=== PATIENT | male | born 1960 | race Caucasian/White ===

== ENCOUNTER 2019-03-24 16:50 | Emergency (ER) | payer BC ==
[~2019-03-24] VITALS: Ht 180.3 cm; Wt 79.5 kg
[~2019-03-24 16:50] MED LIST: LIPITOR; NITR0.4T39 SL; NO NEW MEDS
[2019-03-24 17:04] VITALS: Ht 180.3 cm; Wt 79.5 kg
[2019-03-24] MEDS ORDERED: morphine 4 MG/ML VIAL IV STA (17:14)
[2019-03-24] MEDS ORDERED: ONDANSETRON 4 MG INJ ONE (17:18)
[2019-03-24] MEDS ORDERED: ONDANSETRON 4 MG INJ IV STA (17:26)
[2019-03-24] MEDS ORDERED: SOD CHLORIDE 0.9% 1,000 ML IV ONE (17:30)
[2019-03-24] MEDS ORDERED: ATOR10TA65 PO (17:48)
[2019-03-24] MEDS ORDERED: KETOROLAC 30 MG INJ IV STA (18:01)
[2019-03-24 20:48] VITALS: BP 130/72; PULSE 77; RESP 20
--- NOTE | 2019-03-25 00:03 | ERD ---
ER Documentation Chief Complaint Chief Complaint R flank pain 10/10 X 2 hrs, Hx kidney stones HPI 58-year-old male with a history of multiple kidney stones in the past presenting with left flank pain radiating to the left lower quadrant, sharp, 10 out of 10, with associated nausea and vomiting. No alleviating or exacerbating factors. Denies any associated hematuria. He states that he passed a kidney stone yesterday, but his pain today was much more severe and unbearable, which is why he came to the ER. He denies any fevers or chills. No dysuria. He has a urologist he follows up with, Dr. Mcneil. ROS All systems reviewed and are negative except as per history of present illness. Medications Home Meds Reported Medications Atorvastatin Calcium (Atorvastatin Calcium) 10 Mg Tablet, 10 MG PO QHS, #30 TAB 03/24/19 Discontinued Reported Medications [No New Meds] No Conflict Check 07/05/12 [Lipitor] No Conflict Check 01/28/12 [None] No Conflict Check 04/27/10 Discontinued Scripts Nitroglycerin* (Nitrostat*) 0.4 Mg Tab.subl, 0.4 MG SL Q5MIN PRN for CHEST PAIN, #15 BOTTLE Prov:TESSY HALLCELIORajinder AlvaradoBerta DO 09/13/16 Allergies Allergies: Uncoded Allergies: NUTS (Allergy, Mild, 04/27/10) PCN (Allergy, Mild, 04/27/10) NUTS,PCN (Allergy, Unknown, 03/24/19) PMhx/Soc History of Surgery: Yes (HERNIA) Anesthesia Reaction: No Hx Neurological Disorder: No Hx Respiratory Disorders: No Hx Cardiac Disorders: No Hx Psychiatric Problems: No Hx Miscellaneous Medical Probl: No Hx Alcohol Use: Yes (occasional drinks) Hx Substance Use: No Hx Tobacco Use: No Smoking Status: Never smoker FmHx Family History: No diabetes Physical Exam Vitals Vital Signs Date Temp Pulse Resp B/P (MAP) Pulse Ox O2 O2 Flow FiO2 Time Delivery Rate 03/24/19 99.4 77 20 130/72 99 Room Air 20:48 (91) 03/24/19 77 20 135/76 99 Room Air 18:24 (95) 03/24/19 99.4 76 18 178/83 96 17:04 (114) Physical Exam Const: Severe distress secondary to pain, writhing around in bed Head: Atraumatic Eyes: Normal Conjunctiva ENT: Normal External Ears, Nose and Mouth. Neck: Full range of motion. No meningismus. Resp: Clear to auscultation bilaterally Cardio: Regular rate and rhythm, no murmurs Abd: Soft, left-sided abdominal tenderness to palpation with no rebound or guarding. non distended. Normal bowel sounds Skin: No petechiae or rashes Back: No midline tenderness. Left CVA tenderness Ext: No cyanosis, or edema Neur: Awake and alert Psych: Normal Mood and Affect Result Diagram: 03/24/19 1722 03/24/19 1723 Results 24 hrs Laboratory Tests Test 03/24/19 17:22 03/24/19 17:23 03/24/19 18:30 White Blood Count 13.9 10^3/ul Red Blood Count 5.02 10^6/ul Hemoglobin 15.5 g/dl Hematocrit 44.7 % Mean Corpuscular Volume 89.0 fl Mean Corpuscular Hemoglobin 30.9 pg Mean Corpuscular 34.7 g/dl Hemoglobin Concent Red Cell Distribution Width 12.0 % Platelet Count 246 10^3/UL Mean Platelet Volume 10.6 fl Immature Granulocytes % 0.600 % Neutrophils % 82.1 % Lymphocytes % 8.5 % Monocytes % 8.2 % Eosinophils % 0.4 % Basophils % 0.2 % Nucleated Red Blood Cells % 0.0 /100WBC Immature Granulocytes # 0.080 10^3/ul Neutrophils # 11.4 10^3/ul Lymphocytes # 1.2 10^3/ul Monocytes # 1.1 10^3/ul Eosinophils # 0.1 10^3/ul Basophils # 0.0 10^3/ul Nucleated Red Blood Cells # 0.0 10^3/ul Sodium Level 139 mmol/L Potassium Level 4.4 mmol/L Chloride Level 103 mmol/L Carbon Dioxide Level 26 mmol/L Anion Gap 10 Blood Urea Nitrogen 21 mg/dl Creatinine 1.07 mg/dl Est Glomerular Filtrat > 60 mL/min Rate mL/min Glucose Level 131 mg/dl Calcium Level 9.7 mg/dl Urine Color YELLOW Urine Clarity SLIGHTLY CLOUDY Urine pH 6.0 Urine Specific [place] 1.013 Urine Ketones NEGATIVE mg/dL Urine Nitrite NEGATIVE mg/dL Urine Bilirubin NEGATIVE mg/dL Urine Urobilinogen NEGATIVE mg/dL Urine Leukocyte Esterase NEGATIVE [place]/ul Urine Microscopic RBC 32 /HPF Urine Microscopic WBC 2 /HPF Urine Mucus FEW /HPF Urine Hemoglobin 2+ mg/dL Urine Glucose NEGATIVE mg/dL Urine Total Protein NEGATIVE mg/dl Current Medications Medications Dose Sig/Omar Start Time Status Last (Trade) Ordered Route PRN Stop Time Admin Dose Reason Admin Morphine 6 mg ONCE STAT 03/24/19 DC 03/24/19 Sulfate IV 17:14 17:22 (morphine) 03/24/19 17:16 Ondansetron 4 mg STK-MED 03/24/19 DC HCl (Zofran ONCE .ROUTE 17:18 Inj) 03/24/19 17:19 Ondansetron 4 mg ONCE STAT 03/24/19 DC 03/24/19 HCl (Zofran IV 17:26 17:31 Inj) 03/24/19 17:28 Sodium 1,000 ml @ Q1H ONCE 03/24/19 DC 03/24/19 Chloride 1,000 mls/hr IV 17:30 17:31 03/24/19 18:29 Ketorolac 30 mg ONCE STAT 03/24/19 DC 03/24/19 Tromethamine IV 18:01 18:26 (Toradol) 03/24/19 18:02 Procedures/MDM EMERGENT LABS AND DIAGNOSTIC STUDIES: Lab Results above were reviewed and interpreted by me. CBC: Leukocytosis, likely stress response. Doubt infection. No anemia BMP: No evidence of clinically significant electrolyte abnormality, acidosis, renal failure, hypoglycemia UA: Microscopic hematuria noted. No evidence of infection Radiology Results as interpreted by Radiology below were reviewed by Paco Dorman MD: KUB shows left-sided calcification, concerning for possible kidney stone Initial Nursing notes reviewed. Previous Medical Records requested via the Electronic Health Record. EMERGENCY DEPARTMENT COURSE / MEDICAL DECISION MAKING: Patient is presenting with left abdominal and flank pain with history of kidney stones. I suspect he is passing a kidney stone at this time. He was treated with antiemetics and analgesics. Labs did not show any acute abnormalities. Urinalysis showed hematuria without evidence of infection. During the patient's ED observation, he feels like he passed the stone as his pain had completely resolved upon reevaluation several hours later. I do not feel any repeat imaging is necessary at this time. Patient will follow-up with his urologist, Dr. Mcneil, he has declined all prescriptions for antiemetics and analgesics. Return precautions given. Patient's blood pressure was elevated (>120/80) but appears stable without evidence of hypertensive emergency or urgency. The patient was counseled about the risks of hypertension and urged to pursue outpatient monitoring and therapy within a week with their primary care physician. Departure Diagnosis: Primary Impression: Acute left flank pain Additional Impression: Renal colic on left side Condition: Stable Patient Instructions: Kidney Stone W/ Colic BEE DORMAN MD Mar 25, 2019 00:03
== END 2019-03-24 20:51 | disposition home or self-care (01) ==
LOC: E/R 16:50
DX: N23 Unspecified renal colic (principal)
CPT/HCPCS: 74018; 80048; 81001; 85025; J1885; J2270; J2405; J7030; 36415; 96374; 96375

== ENCOUNTER 2019-03-25 21:44 | Emergency (ER) | payer BC ==
[~2019-03-25] VITALS: Ht 180.3 cm; Wt 81.3 kg
[~2019-03-25 21:44] MED LIST changes: +ATOR10TA65 PO; -LIPITOR; -NITR0.4T39 SL; -NO NEW MEDS
[2019-03-25 21:50] VITALS: Ht 180.3 cm; Wt 81.3 kg
[2019-03-25] MEDS ORDERED: KETOROLAC 30 MG INJ IV STA (22:04)
[2019-03-25] MEDS ORDERED: KETAMINE HCL (50 MG/ML) 1ml syringe IV STA (22:33)
[2019-03-25] MEDS ORDERED: ONDANSETRON 4 MG INJ IV STA (22:33)
--- NOTE | 2019-03-26 00:21 | ERD ---
ER Documentation Chief Complaint Chief Complaint left flank pain x 1 days. hx of kidney stone HPI This is a 58-year-old male with a history of kidney stones who presents with intermittent left flank pain. He was seen here yesterday, where he had an abdominal x-ray that was most consistent with kidney stones, he has not a fever, he felt better, he is been taking Advil at home, he denies chest pain or shortness of breath, he has not had any dysuria. He denies urinary retention. ROS All systems reviewed and are negative except as per history of present illness. Medications Home Meds Active Scripts Ibuprofen* (Motrin*) 600 Mg Tab, 600 MG PO Q6, #30 TAB Prov:LUANNE DUCKWORTH MD 03/26/19 Tamsulosin Hcl* (Flomax*) 0.4 Mg Cap.er.24h, 0.4 MG PO DAILY for 30 Days, CAP Prov:LUANNE DUCKWORTH MD 03/26/19 Hydrocodone/Acetaminophen ([place] 5-325 Tablet) 1 Each Tablet, 1 TAB PO Q6H PRN for PAIN, #15 TAB Prov:LUANNE DUCKWORTH MD 03/26/19 Reported Medications Atorvastatin Calcium (Atorvastatin Calcium) 10 Mg Tablet, 10 MG PO QHS, #30 TAB 03/24/19 Discontinued Reported Medications [No New Meds] No Conflict Check 07/05/12 [Lipitor] No Conflict Check 01/28/12 [None] No Conflict Check 04/27/10 Discontinued Scripts Nitroglycerin* (Nitrostat*) 0.4 Mg Tab.subl, 0.4 MG SL Q5MIN PRN for CHEST PAIN, #15 BOTTLE Prov:EDWIN HALL DO 09/13/16 Allergies Allergies: Coded Allergies: Penicillins (Unverified Allergy, Unknown, 03/26/19) nut - unspecified (Unverified Allergy, Unknown, 03/26/19) Uncoded Allergies: NUTS (Allergy, Mild, 04/27/10) PCN (Allergy, Mild, 04/27/10) NUTS,PCN (Allergy, Unknown, 03/24/19) PMhx/Soc History of Surgery: Yes (HERNIA) Anesthesia Reaction: No Hx Neurological Disorder: No Hx Respiratory Disorders: No Hx Cardiac Disorders: No Hx Psychiatric Problems: No Hx Miscellaneous Medical Probl: No Hx Alcohol Use: Yes (occasional drinks) Hx Substance Use: No Hx Tobacco Use: No Smoking Status: Never smoker Physical Exam Vitals Vital Signs Date Temp Pulse Resp B/P (MAP) Pulse Ox O2 O2 Flow FiO2 Time Delivery Rate 03/25/19 72 14 144/106 98 Room Air 21:57 (119) 03/25/19 98.7 73 18 189/93 99 21:50 (125) Physical Exam Const: Well-developed, well-nourished uncomfortable appearing, Head: Atraumatic Eyes: Normal Conjunctiva ENT: Normal External Ears, Nose and Mouth. Neck: Full range of motion. No meningismus. Resp: Clear to auscultation bilaterally Cardio: Regular rate and rhythm, no murmurs Abd: Soft, non tender, non distended, no rebound or guarding. Normal bowel sounds Skin: No petechiae or rashes Back: No midline or flank tenderness Ext: No cyanosis, or edema Neur: Awake and alert Psych: Normal Mood and Affect Result Diagram: 03/25/19220303/25/192203 Results 24 hrs Laboratory Tests Test 03/25/19 22:04 03/26/19 01:08 White Blood Count 13.2 10^3/ul Red Blood Count 4.69 10^6/ul Hemoglobin 14.5 g/dl Hematocrit 42.5 % Mean Corpuscular Volume 90.6 fl Mean Corpuscular Hemoglobin 30.9 pg Mean Corpuscular Hemoglobin Concent 34.1 g/dl Red Cell Distribution Width 12.0 % Platelet Count 226 10^3/UL Mean Platelet Volume 10.6 fl Immature Granulocytes % 0.500 % Neutrophils % 82.3 % Lymphocytes % 6.4 % Monocytes % 9.9 % Eosinophils % 0.6 % Basophils % 0.3 % Nucleated Red Blood Cells % 0.0 /100WBC Immature Granulocytes # 0.060 10^3/ul Neutrophils # 10.9 10^3/ul Lymphocytes # 0.9 10^3/ul Monocytes # 1.3 10^3/ul Eosinophils # 0.1 10^3/ul Basophils # 0.0 10^3/ul Nucleated Red Blood Cells # 0.0 10^3/ul Sodium Level 139 mmol/L Potassium Level 4.7 mmol/L Chloride Level 101 mmol/L Carbon Dioxide Level 30 mmol/L Anion Gap 8 Blood Urea Nitrogen 23 mg/dl Creatinine 1.21 mg/dl Est Glomerular Filtrat Rate mL/min > 60 mL/min Glucose Level 108 mg/dl Calcium Level 9.4 mg/dl Total Bilirubin 1.3 mg/dl Direct Bilirubin 0.00 mg/dl Indirect Bilirubin 1.3 mg/dl Aspartate Amino Transf (AST/SGOT) 33 IU/L Alanine Aminotransferase (ALT/SGPT) 33 IU/L Alkaline Phosphatase 80 IU/L Total Protein 7.3 g/dl Albumin 4.2 g/dl Globulin 3.10 g/dl Albumin/Globulin Ratio 1.35 Lipase 67 U/L Urine Color STRAW Urine Clarity CLEAR Urine pH 8.0 Urine Specific [place] 1.009 Urine Ketones TRACE mg/dL Urine Nitrite NEGATIVE mg/dL Urine Bilirubin NEGATIVE mg/dL Urine Urobilinogen NEGATIVE mg/dL Urine Leukocyte Esterase NEGATIVE [place]/ul Urine Hemoglobin NEGATIVE mg/dL Urine Glucose NEGATIVE mg/dL Urine Total Protein NEGATIVE mg/dl Current Medications Medications Dose Sig/Omar Start Time Status Last (Trade) Ordered Route PRN Stop Time Admin Dose Reason Admin Ketorolac 30 mg ONCE STAT 03/25/19 DC 03/25/19 Tromethamine IV 22:04 03/25/19 22:08 (Toradol) 22:05 Ondansetron 4 mg ONCE STAT 03/25/19 DC 03/25/19 HCl (Zofran IV 22:33 03/25/19 23:11 Inj) 22:34 Ketamine 24 mg ONCE STAT 03/25/19 DC 03/25/19 HCl IV 22:33 03/25/19 23:11 (Ketamine 22:34 HCl) 2 tab ONCE ONCE 03/26/19 DC Acetaminophen PO 01:30 03/26/19 / 01:31 Hydrocodone Bitart ([place] (5/325)) Procedures/MDM 58-year-old male presents for relation of left flank pain, exam reveals an afebrile nontoxic male, he appeared to be in pain, and was treated with Toradol and low-dose ketamine. Labs do not appear markedly changed from yesterday, he had a CT abdomen pelvis, which showed 4 mm stone in the left mid ureter, with obstructive uropathy, otherwise no evidence of infection. On reassessment the patient felt significantly better, he strongly wished to go home, and stated that he had follow-up with urology on Wednesday, I provided prescription for [place], Flomax and ibuprofen. Strict precautions given to return to the ED for any fever, worsening abdominal pain or any worsening symptoms at discharge he was in no distress, he was ambulatory and comfortable. EKG: Rate/Rhythm: Normal Sinus Rhythm. significant artifact noted QRS, ST, T-waves: No changes consistent w/ acute ischemia Impression: No evidence of ischemia or arrhythmia Departure Diagnosis: Primary Impression: Flank pain Condition: Stable LUANNE DUCKWORTH MD Mar 26, 2019 00:21
[2019-03-26] MEDS ORDERED: HYDROCODONE/APAP (5/325) TAB PO ONE (01:30)
[2019-03-26] MEDS ORDERED: TAMS-14 PO (01:43)
[2019-03-26] MEDS ORDERED: HYDR-4011 PO (01:43)
[2019-03-26] MEDS ORDERED: IBUP-1542 PO (01:43)
[2019-03-26 01:50] VITALS: BP 145/88; PULSE 68; RESP 18
== END 2019-03-26 01:50 | disposition home or self-care (01) ==
LOC: E/R 21:44
DX: R10.9 Unspecified abdominal pain (principal)
CPT/HCPCS: 36415; 74176; 80053; 81003; 83690; 85025; 93005; 96374; 96375; 99285; J1885; J2405

== ENCOUNTER 2019-04-01 19:14 | Emergency (ER) | payer BC ==
[~2019-04-01] VITALS: Ht 180.3 cm; Wt 79.2 kg
[~2019-04-01 19:14] MED LIST changes: +HYDR-4011 PO; +IBUP-1542 PO; +TAMS-14 PO
[2019-04-01 19:16] VITALS: Ht 180.3 cm; Wt 79.2 kg
--- NOTE | 2019-04-01 23:30 | ERD ---
ER Documentation Chief Complaint Chief Complaint R ARM PAIN X'S 3 DAYS, STARTED 48 HRS AFTER IV PLACEMENT IN SAME ARM HPI This is a 58-year-old male who is here because of pain and tenderness to his right antecubital vein and extending distally. The patient had an IV placed there 48 hours ago and has subsequently had some pain at the IV site and distally there is a tender vein wraps around the forearm into the basilic. There is no swelling. There is no pain or swelling in the arm above the elbow/bicep area no shortness of breath or chest pain ROS All systems reviewed and are negative except as per history of present illness. Medications Home Meds Active Scripts Ibuprofen* (Motrin*) 600 Mg Tab, 600 MG PO Q6, #30 TAB Prov:LUANNE DUCKWORTH MD 03/26/19 Tamsulosin Hcl* (Flomax*) 0.4 Mg Cap.er.24h, 0.4 MG PO DAILY for 30 Days, CAP Prov:LUANNE DUCKWORTH MD 03/26/19 Hydrocodone/Acetaminophen ([place] 5-325 Tablet) 1 Each Tablet, 1 TAB PO Q6H PRN for PAIN, #15 TAB Prov:LUANNE DUCKWORTH MD 03/26/19 Reported Medications Atorvastatin Calcium (Atorvastatin Calcium) 10 Mg Tablet, 10 MG PO QHS, #30 TAB 03/24/19 Allergies Allergies: Coded Allergies: Penicillins (Unverified Allergy, Mild, 04/01/19) nut - unspecified (Unverified Allergy, Mild, 04/01/19) PMhx/Soc History of Surgery: Yes (HERNIA) Anesthesia Reaction: No Hx Neurological Disorder: No Hx Respiratory Disorders: No Hx Cardiac Disorders: No Hx Psychiatric Problems: No Hx Miscellaneous Medical Probl: No Hx Alcohol Use: Yes (occasional drinks) Hx Substance Use: No Hx Tobacco Use: No Smoking Status: Never smoker FmHx Family History: No coronary disease Physical Exam Vitals Vital Signs Date Temp Pulse Resp B/P (MAP) Pulse Ox O2 O2 Flow FiO2 Time Delivery Rate 04/01/19 98.0 88 18 150/94 97 19:16 (112) Physical Exam Const: Well-developed, well-nourished Head: Atraumatic, normocephalic Eyes: Normal Conjunctiva, PERRLA, EOMI, normal sclera, no nystagmus ENT: Normal External Ears, Nose and Mouth, moist mucus membranes. Neck: Full range of motion. No meningismus, no lymphadenopathy. Resp: Clear to auscultation bilaterally, no wheezing, rhonchi, rales Cardio: Regular rate and rhythm, no murmurs, S1 S2 present Abd: Soft, non tender x 4, non distended. Normal bowel sounds, no guarding or rebound, no pulsitile abdominal masses or bruits Skin: No petechiae or rashes, no ecchymosis , no maculopapular rash Back: No midline or flank tenderness Ext: No cyanosis, or edema, FROM x 4, normal inspection, neurovascularly intact x 4, there is firmness to the basilic vein, distally this there is some firmness to the vein as it wraps around the forearm Neur: Awake and alert, STR 5/5 x 4, sensation intact x 4, no focal findings, cerebellum intact Psych: Normal Mood and Affect Procedures/MDM Ultrasound report shows a thrombosis to the superficial basophilic vein extending distally Reviewed with the patient the need to watch for any worsening of his condition and swelling. Told him to take an aspirin a day and apply warm compresses [place] [id number] Radiology Main Line: [phone] DIAGNOSTIC IMAGING REPORT Patient: DIANNE DESOUZA : 1960 Age: 58 Sex: M MR #: [id number] DOS: 04/01/192053 Ordering MD: EDWIN HALL DO Location: E/R Room/Bed: PROCEDURE: US DVT. CLINICAL INDICATION: Distal right arm pain. TECHNIQUE: Multiple longitudinal and transverse images of the right upper extremity veins were obtained with moran scale and color Doppler imaging. 2D grayscale measurements with compression, color Doppler flow, and augmentation was performed. COMPARISON: No prior studies are available for comparison. FINDINGS: The right internal jugular, axillary, brachial, cephalic, antecubital, radial, and ulnar veins are patent. There is occlusive thrombus in the proximal to distal basilic vein. IMPRESSION: No right upper extremity DVT. Occlusive SVT in the right basilic vein. RPTAT: HTAR .El Vincent MD, MD Date Time Electronically viewed and signed by .El Vincent MD, on 04/01/2019 23:16 .R/ CC: EDWIN HALL DO [id number] Departure Diagnosis: Primary Impression: Superficial vein thrombosis Condition: Stable EDWIN HALL DO Apr 01, 2019 23:30
[2019-04-01] MEDS ORDERED: TRAM50TA2 PO (23:31)
[2019-04-01] MEDS ORDERED: ASPI-817 PO (23:31)
[2019-04-01 23:50] VITALS: BP 128/76; PULSE 60; RESP 18
== END 2019-04-01 23:56 | disposition home or self-care (01) ==
LOC: E/R 19:14
DX: I82.611 Acute embolism and thrombosis of superficial veins of right upper extremity (principal)
CPT/HCPCS: 93971